=== PATIENT | female | born 1985 | race African-American/Black ===

== ENCOUNTER 2020-04-28 14:11 | Emergency (ER) | payer MEDICAID ==
[~2020-04-28] VITALS: Ht 157.5 cm; Wt 95.3 kg
[~2020-04-28 14:11] MED LIST: PRON INH
[2020-04-28 14:16] VITALS: BP 131/81
--- NOTE | 2020-04-28 14:19 | NUR ---
PT WHEELCHAIR ASSISTED TO BED 11
[2020-04-28] MEDS ORDERED: KETOROLAC 60 MG/2 ML VIAL IM ONE (14:25)
--- NOTE | 2020-04-28 14:30 | NUR ---
PT C/O LACERATION ON RT GREAT TOE WITH PAIN 8/10 S/P APPROX 75LB MIRROR FELL ON FOOT. NO ACTIVE BLEEDING NOTICED AT THIS TIME. PT DENIES ANY FEVER, CP, SOB, OR COUGH AT THIS TIME; PT IS NOT ABLE TO WALK DUE TO THE PAIN. VSS; PATIENT POSITIONED FOR COMFORT; HOB ELEVATED; BEDRAILS UP X1; BED DOWN. ER MD MADE AWARE OF PT STATUS.
--- NOTE | 2020-04-28 14:39 | NUR ---
XRAY IS AT BEDSIDE.
[2020-04-28] MEDS ORDERED: LIDOCAINE MPF 1% 10 MG/ML VIAL INJ ONE (15:05)
[2020-04-28] MEDS ORDERED: LORazepam 2 MG/ML VIAL IM ONE (16:00)
[2020-04-28 16:55] VITALS: BP 116/80
--- NOTE | 2020-04-28 16:55 | NUR ---
Patient discharged with v/s stable. Written and verbal after care instructions given and explained. Patient alert, oriented and verbalized understanding of instructions. Patient wheel chair assisted to car. All questions addressed prior to discharge. ID band removed. Patient advised to follow up with PMD. Rx of Naprosyn and Bacitracin ointment given. Patient educated on indication of medication including possible reaction and side effects. Opportunity to ask questions provided and answered.
== END 2020-04-28 16:55 | disposition home or self-care (01) ==
LOC: MED 14:11
DX: S90.32XA Contusion of left foot, initial encounter (principal); S91.312A Laceration without foreign body, left foot, initial encounter; F17.210 Nicotine dependence, cigarettes, uncomplicated; J45.909 Unspecified asthma, uncomplicated; Z98.890 Other specified postprocedural states; Z91.018 Allergy to other foods; Z79.899 Other long term (current) drug therapy; W04.XXXA Fall while being carried or supported by other persons, initial encounter; Y93.89 Activity, other specified; Y92.89 Other specified places as the place of occurrence of the external cause; Y99.8 Other external cause status
CPT/HCPCS: 73630; 96372; 99284; J1885; J2001; J2060; Q0092

== ENCOUNTER 2020-05-05 18:38 | Emergency (ER) | payer MEDICAID ==
[~2020-05-05] VITALS: Ht 157.5 cm; Wt 95.3 kg
[2020-05-05 18:42] VITALS: BP 118/90
--- NOTE | 2020-05-05 18:48 | NUR ---
AMBULATE TO BED 5 WITH STEADY GAIT.
--- NOTE | 2020-05-05 18:50 | NUR ---
1 WEEK AGO PT DROPPED LARGE OBJECT ON RIGHT BIG TOE AND SPLIT TOE NAIL. TOE IS GIVING HER PAIN, NEEDS TO GET CLEARANCE TO GO BACK TO WORK . NO ROM OF RT BIG TOE , NO OPEN WOUND NOR ACTIVE BLEEDING , ABLE TO WALK WITH STEADY GAIT. PMH: ASTHMA
--- NOTE | 2020-05-05 19:07 | NUR ---
GAVE REPORT TO ROMANA CHAVEZ ,PT COMFORTABLE IN BED ,STABLE V/S, SIDE RAILS UP X1 AND LOCK.
--- NOTE | 2020-05-05 19:08 | NUR ---
REPORT RECEIVED FROM ROMANA VÁZQUEZ FOR CONTINUATION OF CARE.
--- NOTE | 2020-05-05 19:19 | NUR ---
Dr. Frank examining patient.
[2020-05-05] MEDS ORDERED: ALBUTEROL 0.083% 2.5 MG/3 ML NEBU INH ONE (19:35)
--- NOTE | 2020-05-05 19:48 | NUR ---
RT AT BEDSIDE FOR TX.
[2020-05-05 20:08] VITALS: BP 118/90
== END 2020-05-05 20:08 | disposition home or self-care (01) ==
LOC: MED 18:38
DX: S91.201A Unspecified open wound of right great toe with damage to nail, initial encounter (principal); J45.909 Unspecified asthma, uncomplicated; Z79.899 Other long term (current) drug therapy; Z91.018 Allergy to other foods; W22.8XXA Striking against or struck by other objects, initial encounter; Y93.89 Activity, other specified; Y92.89 Other specified places as the place of occurrence of the external cause; Y99.8 Other external cause status
CPT/HCPCS: 94640; 99283; J7613

== ENCOUNTER 2020-08-04 18:40 | Emergency (ER) | payer MEDICAID ==
[~2020-08-04] VITALS: Ht 157.5 cm; Wt 93.0 kg
--- NOTE | 2020-08-04 18:49 | NUR ---
PATIENT AMBULATED TO ER BED 3.
[2020-08-04 18:51] VITALS: BP 106/45
--- NOTE | 2020-08-04 19:15 | NUR ---
34 YO F BI SELF FOR C/C OF WHITE VAGINAL DISCHARGE AND PAINFUL INTERCORSE X1 WEEK. PT DENIES , HEMATURIA, ITCHINESS, OR BLOODY DISCHARGE. MED HX: ASTHMA ALLERGIES TO PEANUTS NO RX
--- NOTE | 2020-08-04 19:30 | NUR ---
PT UNABLE TO PROVIDE UA AT THIS TIME
--- NOTE | 2020-08-04 19:35 | NUR ---
PT PROVIDED WITH TWO GLASSES OF H2O TO PROVIDE UA
--- NOTE | 2020-08-04 19:45 | NUR ---
ASSISTED DR. DALAL IN VAGINAL EAM
--- NOTE | 2020-08-04 19:54 | NUR ---
WET CHRIST COLLECTED AND SENT TO LAB
--- NOTE | 2020-08-04 20:25 | NUR ---
PT ENCOURAGED TO GIVE UA
[2020-08-04 20:39] VITALS: BP 106/45
--- NOTE | 2020-08-04 20:39 | NUR ---
Patient discharged with v/s stable. Written and verbal after care instructions given and explained. Patient verbalized understanding. Ambulatory with steady gait. All questions addressed prior to discharge. Advised to follow up with PMD.
[2020-08-10 06:07] LABS: CHLAMYDIA TRACHOMATIS AMP DNA Negative (Negative)
== END 2020-08-04 20:39 | disposition home or self-care (01) ==
LOC: MED 18:40
DX: N89.8 Other specified noninflammatory disorders of vagina (principal); J45.909 Unspecified asthma, uncomplicated; Z79.899 Other long term (current) drug therapy; Z98.890 Other specified postprocedural states; Z91.010 Allergy to peanuts; Z01.419 Encounter for gynecological examination (general) (routine) without abnormal findings; Z00.00 Encounter for general adult medical examination without abnormal findings
CPT/HCPCS: 36415; 81002; 81025; 87070; 87205; 87210; 87491; 99283; 99284

== ENCOUNTER 2020-11-07 18:06 | Emergency (ER) | payer MEDICAID ==
--- NOTE | 2020-11-07 18:17 | NUR ---
PT CALLED AT TRIAGE, NO RESPONSE. PATIENT LEFT WITHOUT BEING SEEN BY DR. MCDERMOTT. NO FURTHER CARE PROVIDED FOR PATIENT.
--- NOTE | 2020-11-07 18:22 | NUR ---
CALLED FOR SECOND TIME, NO RESPONSE.
--- NOTE | 2020-11-07 18:27 | NUR ---
CALLED FOR THE THIRD TIME, NO RESPONSE.
== END 2020-11-07 18:27 | disposition left against medical advice (07) ==
LOC: MED 18:06
DX: Z53.21 Procedure and treatment not carried out due to patient leaving prior to being seen by health care provider (principal)

== ENCOUNTER 2021-02-05 01:23 | Emergency (ER) | payer MEDICAID ==
[~2021-02-05] VITALS: Ht 157.5 cm; Wt 88.5 kg
[2021-02-05 01:28] VITALS: BP 147/90
--- NOTE | 2021-02-05 01:28 | NUR ---
TO BED AMBULATORY
[2021-02-05] MEDS ORDERED: ALBUTEROL SULFATE/IPRATROPIU 3 ML SOL IH ONE ×2 (01:40)
[2021-02-05] MEDS ORDERED: predniSONE 20 MG TAB PO ONE (01:40)
--- NOTE | 2021-02-05 01:44 | NUR ---
35 Y/O F BIB SELF FROM HOME, C/O ASTHMA ATTACK THAT STARTED 3 DAYS AGO, SOB. HAS NOT BEEN ABLE TO TAKE ALBUTEROL INHALER AT HOME SINCE SHE IS CURRENTLY OUT OF THE MEDICATION. DENIES CHEST PAIN, COUGH NON-PRODUCTIVE, DENIES FEVERS. UPON AUSCULTATION, LUNGS BILATERAL AUDIBLE WHEEZING WITH INSPIRATORY AND EXPIRATORY, NO CRACKLES. PT IS CURRENTLY ON PULSE OXIMETER MONITOR STAT 100% ON RA. LMP: 02/02/21 PMH: ASTHMA NKDA, FOOD: PEANUT
--- NOTE | 2021-02-05 01:45 | NUR ---
RT AT BEDSIDE GIVING TREATMENT
[2021-02-05] MEDS ORDERED: ALBUTEROL HFA MDI 90 MCG/ACTUATION 8 GM INH STA (01:56)
[2021-02-05] MEDS ORDERED: PRED20TA5 PO (02:00)
[2021-02-05] MEDS ORDERED: ALBU0.0912 IH (02:00)
--- NOTE | 2021-02-05 02:08 | NUR ---
REASSESSED LUNGS ANTERIOR AND POSTERIOR, ALL LUNG BASES CLAR WITH NO AUDIBLE WHEEZING DURING INSPIRATION AND EXPIRATION.
--- NOTE | 2021-02-05 02:23 | NUR ---
PT HANDED MICHAELB PER ERMHemal.
[2021-02-05 02:24] VITALS: BP 147/90
--- NOTE | 2021-02-05 02:24 | NUR ---
Patient discharged with v/s stable. Written and verbal after care instructions given and explained. Patient alert, oriented and verbalized understanding of instructions. Ambulatory with steady gait. All questions addressed prior to discharge. ID band removed. Patient advised to follow up with PMD. Rx of PREDNISONE, ALBUTEROL given. Patient educated on indication of medication including possible reaction and side effects. Opportunity to ask questions provided and answered.
== END 2021-02-05 02:21 | disposition home or self-care (01) ==
LOC: MED 01:23
DX: J45.901 Unspecified asthma with (acute) exacerbation (principal); F17.210 Nicotine dependence, cigarettes, uncomplicated; Z91.010 Allergy to peanuts; Z79.899 Other long term (current) drug therapy
CPT/HCPCS: 94640; 99283; J3535; J7512

== ENCOUNTER 2021-04-26 23:44 | Emergency (ER) | payer MEDICAID ==
[~2021-04-26] VITALS: Ht 157.5 cm; Wt 90.3 kg
[~2021-04-26 23:44] MED LIST changes: +ALBU0.0912 IH; +PRED20TA5 PO
[2021-04-26 23:57] VITALS: BP 156/110
[2021-04-27] MEDS ORDERED: ALBUTEROL SULFATE/IPRATROPIU 3 ML SOL IH ONE (00:35)
[2021-04-27 01:06] VITALS: BP 156/110
[2021-04-27] MEDS ORDERED: ALBU0.0912 INH (01:37)
== END 2021-04-27 01:45 | disposition home or self-care (01) ==
LOC: MED 23:44
DX: J45.901 Unspecified asthma with (acute) exacerbation (principal); Z79.899 Other long term (current) drug therapy; Z91.010 Allergy to peanuts
CPT/HCPCS: 94640; 99283

== ENCOUNTER 2021-07-24 00:52 | Emergency (ER) | payer MEDICAID ==
[~2021-07-24] VITALS: Ht 160 cm; Wt 90.7 kg
[~2021-07-24 00:52] MED LIST changes: +ALBU0.0912 INH
[2021-07-24 01:10] VITALS: BP 155/70
--- NOTE | 2021-07-24 01:13 | NUR ---
TO LOBBY A/W BED AMBULATORY
[2021-07-24] MEDS ORDERED: ALBUTEROL 0.083% 2.5 MG/3 ML NEBU INH ONE (02:25)
[2021-07-24] MEDS ORDERED: PRED20TA5 PO (02:38)
--- NOTE | 2021-07-24 02:51 | NUR ---
Respiratory Therapist at bedside for respiratory intervention.
--- NOTE | 2021-07-24 03:00 | NUR ---
Patient discharged with v/s stable. Written and verbal after care instructions ABOUT ADULT ASTHMA given and explained. Patient alert, oriented and verbalized understanding of instructions. Ambulatory with steady gait. All questions addressed prior to discharge. ID band removed. Patient advised to follow up with PMD. Rx of PREDNISONE given. Patient educated on indication of medication including possible reaction and side effects. Opportunity to ask questions provided and answered.
== END 2021-07-24 03:00 | disposition home or self-care (01) ==
LOC: MED 00:52
DX: J45.901 Unspecified asthma with (acute) exacerbation (principal); Z79.899 Other long term (current) drug therapy; Z91.010 Allergy to peanuts
CPT/HCPCS: 94640; 99283; J7613

== ENCOUNTER 2021-10-18 06:19 | Emergency (ER) | payer MEDICAID ==
[~2021-10-18] VITALS: Ht 157.5 cm; Wt 90.7 kg
[2021-10-18 06:20] VITALS: BP 156/105
--- NOTE | 2021-10-18 06:20 | NUR ---
to bed ambulatory
[2021-10-18] MEDS ORDERED: PROCHLORPERAZINE 10 MG/2 ML VIAL IM ONE (06:45)
--- NOTE | 2021-10-18 06:45 | NUR ---
patient swabbed and sent to lab
[2021-10-18] MEDS ORDERED: PROCHLORPERAZINE 5 MG TAB PO ONE (06:50)
--- NOTE | 2021-10-18 06:58 | NUR ---
patient to CT via w/c
--- NOTE | 2021-10-18 07:25 | NUR ---
Pt report given to Kristen GENTILE. Transfer of care at this time.
[2021-10-18] MEDS ORDERED: IBUPROFEN 400 MG TAB PO ONE (07:55)
[2021-10-18] MEDS ORDERED: HYDROcodone/APAP 5/325 MG 1 TAB TAB PO ONE (07:55)
[2021-10-18] MEDS ORDERED: FLONAS NS (07:59)
[2021-10-18] MEDS ORDERED: NAPR-54 PO (07:59)
[2021-10-18] MEDS ORDERED: PSEU120T31 PO (07:59)
[2021-10-18] MEDS ORDERED: ACET-8386 PO (07:59)
[2021-10-18 08:23] VITALS: BP 156/105
--- NOTE | 2021-10-18 08:24 | NUR ---
Patient discharged with v/s stable. Written and verbal after care instructions given and explained. Patient alert, oriented and verbalized understanding of instructions. Ambulatory with steady gait. All questions addressed prior to discharge. ID band removed. Patient advised to follow up with PMD. Rx of HYDROCODONE/ACETAMINOPHEN, FLUTICASONE PROPIANATE, NAROXEN, PSEUDOEPHEDRINE GCI given. Opportunity to ask questions provided and answered.
== END 2021-10-18 08:23 | disposition home or self-care (01) ==
LOC: MED 06:19
DX: J32.9 Chronic sinusitis, unspecified (principal); Z20.822 Contact with and (suspected) exposure to COVID-19; R51.9 Headache, unspecified; R11.0 Nausea; R43.8 Other disturbances of smell and taste; J45.909 Unspecified asthma, uncomplicated; F17.200 Nicotine dependence, unspecified, uncomplicated; Z98.890 Other specified postprocedural states; Z79.899 Other long term (current) drug therapy; Z91.010 Allergy to peanuts
CPT/HCPCS: 70450; 87426; 99284; Q0164; U0003

== ENCOUNTER 2021-11-27 10:03 | Emergency (ER) | payer MEDICAID ==
[~2021-11-27] VITALS: Ht 160 cm; Wt 90.7 kg
[~2021-11-27 10:03] MED LIST changes: +ACET-8386 PO; +FLONAS NS; +NAPR-54 PO; +PSEU120T31 PO
[2021-11-27] MEDS ORDERED: ALBUTEROL 0.083% 2.5 MG/3 ML NEBU INH STA (10:13)
[2021-11-27 10:14] VITALS: BP 130/99
[2021-11-27] MEDS ORDERED: IPRATROPIUM 0.02% 0.5 MG/2.5 ML NEBU INH ONE (10:15)
[2021-11-27] MEDS ORDERED: predniSONE 20 MG TAB PO ONE (10:15)
[2021-11-27] MEDS ORDERED: NACL 0.9% 1,000 ML IV ONE (10:15)
[2021-11-27] MEDS ORDERED: MAG SULF 2000 MG/WATER PREMIX 50 ML IV ONE (10:15)
[2021-11-27] MEDS ORDERED: ALBUTEROL 0.083% 2.5 MG/3 ML NEBU INH ONE (10:16)
--- NOTE | 2021-11-27 10:20 | NUR ---
C/O SOB X 30 MINS AGO. PMH: ASTHMA
[2021-11-27] MEDS ORDERED: ALBU0.0912 IH (11:20)
[2021-11-27] MEDS ORDERED: PRED50TA2 PO (11:20)
[2021-11-27 11:30] VITALS: BP 128/83
--- NOTE | 2021-11-27 11:30 | NUR ---
Patient discharged with v/s stable. Written and verbal after care instructions given and explained. Patient alert, oriented and verbalized understanding of instructions. Ambulatory with steady gait. All questions addressed prior to discharge. ID band removed. Patient advised to follow up with PMD. Rx of PREDNISONE, ALBUTEROL SULFATE given. Patient educated on indication of medication including possible reaction and side effects. Opportunity to ask questions provided and answered.
--- NOTE | 2021-11-28 11:38 | NUR ---
LATE ENTRY- MAGNESIUM IV DISCONTINUED AT 1130.
== END 2021-11-27 11:30 | disposition home or self-care (01) ==
LOC: MED 10:03
DX: J45.901 Unspecified asthma with (acute) exacerbation (principal); Z91.010 Allergy to peanuts; Z79.899 Other long term (current) drug therapy
CPT/HCPCS: 94640; 96365; 99284; J3475; J7030; J7512; J7613; J7644

== ENCOUNTER 2021-12-13 07:26 | Emergency (ER) | payer MEDICAID ==
[~2021-12-13] VITALS: Ht 160 cm; Wt 93.0 kg
[~2021-12-13 07:26] MED LIST changes: +PRED50TA2 PO
[2021-12-13 07:34] VITALS: BP 150/80
--- NOTE | 2021-12-13 07:39 | NUR ---
PATIENT AMBULATED TO BED 5.
[2021-12-13] MEDS ORDERED: ALBUTEROL HFA MDI 90 MCG/ACTUATION 8 GM INH ONE (07:40)
[2021-12-13] MEDS ORDERED: predniSONE 20 MG TAB PO ONE (07:40)
--- NOTE | 2021-12-13 07:51 | NUR ---
RT AT PATIENT BEDSIDE PROVIDING ALBUTEROL TX
--- NOTE | 2021-12-13 07:52 | NUR ---
MDI THERAPY VIA SPACER AND RESPIRATORY DRUG GIVEN ORDERED
--- NOTE | 2021-12-13 08:25 | NUR ---
36/F PRESENTS TO ED WITH C/O SOB, COUGH AND WHEEZING X2 DAYS. PATIENT REPORTS HX OF ASTHMA AND STATES THIS FEELS LIKE HER ASTHMA, PATIENT STATES SHE HAS BEEN USING HER PRESCRIBED INHALER BUT HAS NOT FOUND RELIEF. PATIENT DENIES HEADACHE, FEVER, BODY ACHES, VOMITING, DIARRHEA OR RECENT SICK CONTACTS.
[2021-12-13] MEDS ORDERED: ALBU0.0912 INH (08:37)
[2021-12-13] MEDS ORDERED: PRED20TA5 PO (08:37)
--- NOTE | 2021-12-13 08:52 | NUR ---
Patient discharged with v/s stable. Written and verbal after care instructions ABOUT ASTHMA given and explained. Patient alert, oriented and verbalized understanding of instructions. Ambulatory with steady gait. All questions addressed prior to discharge. ID band removed. Patient advised to follow up with PMD. Rx of ALBUTEROL AND PREDNISONE given.
--- NOTE | 2021-12-13 08:58 | NUR ---
The patient's care was reviewed and supervised by Evelyn Alvares RN.
== END 2021-12-13 08:52 | disposition home or self-care (01) ==
LOC: MED 07:26
DX: J45.901 Unspecified asthma with (acute) exacerbation (principal); F17.210 Nicotine dependence, cigarettes, uncomplicated; Z79.899 Other long term (current) drug therapy; Z91.010 Allergy to peanuts
CPT/HCPCS: 94664; 99283; J7512

== ENCOUNTER 2022-03-29 17:05 | Emergency (ER) | payer MEDICAID ==
[~2022-03-29] VITALS: Ht 160 cm; Wt 100.7 kg
[2022-03-29 17:09] VITALS: BP 131/114
[2022-03-29] MEDS ORDERED: predniSONE 20 MG TAB PO ONE (17:10)
[2022-03-29] MEDS ORDERED: ALBUTEROL 0.083% 2.5 MG/3 ML NEBU INH ONE (17:10)
[2022-03-29] MEDS ORDERED: ALBUTEROL SULFATE/IPRATROPIU 3 ML SOL IH ONE (17:10)
--- NOTE | 2022-03-29 17:19 | NUR ---
Mariama dumont in ED - 03/29/22 at 1723 by [email or web address] RT BEDSIDE PROVIDING BREATHING TX
--- NOTE | 2022-03-29 17:23 | NUR ---
DR. PLATA BEDSIDE EVALUATING PT
[2022-03-29] MEDS ORDERED: PRED20TA5 PO (17:29)
[2022-03-29] MEDS ORDERED: ALBU0.0912 INH (17:29)
--- NOTE | 2022-03-29 17:32 | NUR ---
36Y FEMALE BIB SELF WITH C/O DIFFICULTY BREATHING AND COUGH X 2 DAYS. DENIES ANY PAIN. PT SATING 97% ON RA AND WHEEXING HEARD IN BILATERAL BASES. PT IS A&OX4 AND AMBULATORY. NO AUDIBLE WHEEZING HEARD. DRY COUGH NOTED THAT IS NON-PRODUCTIVE. PMH: ASTHMA ALLERGIES: PEANUTS
--- NOTE | 2022-03-29 17:36 | NUR ---
RT BEDSIDE PROVIDING BREATHING TX
--- NOTE | 2022-03-29 18:05 | NUR ---
Patient discharged with v/s stable. Written and verbal after care instructions given and explained. Patient alert, oriented and verbalized understanding of instructions. Ambulatory with steady gait. All questions addressed prior to discharge. ID band removed. Patient advised to follow up with PMD. Rx of PREDNISONE AND ALBUTEROL given. Patient educated on indication of medication including possible reaction and side effects. Opportunity to ask questions provided and answered.
== END 2022-03-29 18:05 | disposition home or self-care (01) ==
LOC: MED 17:05
DX: J45.901 Unspecified asthma with (acute) exacerbation (principal); F17.200 Nicotine dependence, unspecified, uncomplicated; Z79.899 Other long term (current) drug therapy; Z91.010 Allergy to peanuts; Z98.890 Other specified postprocedural states
CPT/HCPCS: 99283; J7512; J7613; 94640

== ENCOUNTER 2022-05-13 21:29 | Emergency (ER) | payer MEDICAID ==
[~2022-05-13] VITALS: Ht 162.6 cm; Wt 90.7 kg
[2022-05-13 21:30] VITALS: BP 148/91
--- NOTE | 2022-05-13 21:30 | NUR ---
TO BED AMBULATORY
--- NOTE | 2022-05-13 21:47 | NUR ---
Dr. Heart examining patient.
[2022-05-13] MEDS ORDERED: ALBUTEROL 0.083% 2.5 MG/3 ML NEBU INH ONE (21:50)
[2022-05-13] MEDS ORDERED: predniSONE 20 MG TAB PO ONE (21:50)
--- NOTE | 2022-05-13 21:56 | NUR ---
XRAY AT BEDSIDE
--- NOTE | 2022-05-13 21:59 | NUR ---
Respiratory Therapist at bedside for respiratory intervention.
--- NOTE | 2022-05-13 22:05 | NUR ---
Dr. Ruano examining patient.
[2022-05-13] MEDS ORDERED: ALBUTEROL SULFATE/IPRATROPIU 3 ML SOL IH ONE ×2 (22:09→22:10)
[2022-05-13] MEDS ORDERED: PRED20TA5 PO (22:34)
[2022-05-13] MEDS ORDERED: ALBU-118 IH (22:34)
[2022-05-13] MEDS ORDERED: LOTRC TP (22:51)
[2022-05-13] MEDS ORDERED: MICO2POW TP (22:51)
== END 2022-05-13 22:55 | disposition home or self-care (01) ==
LOC: MED 21:29
DX: J45.901 Unspecified asthma with (acute) exacerbation (principal); L30.4 Erythema intertrigo; F17.210 Nicotine dependence, cigarettes, uncomplicated; Z79.899 Other long term (current) drug therapy; Z91.010 Allergy to peanuts
CPT/HCPCS: 71045; 94640; 99291; J7512; J7613; Q0092

== ENCOUNTER 2022-07-09 20:58 | Emergency (ER) | payer BC, MEDICAID ==
[~2022-07-09 20:58] MED LIST changes: +ALBU-118 IH; +LOTRC TP; +MICO2POW TP
--- NOTE | 2022-07-09 21:37 | NUR ---
CALLED FOR PATIENT- NO ANSWER AT THIS TIME
--- NOTE | 2022-07-09 22:07 | NUR ---
CALLED, NO ANSWER. PT LWBS
== END 2022-07-09 21:37 | disposition left against medical advice (07) ==
LOC: MED 20:58
DX: M25.579 Pain in unspecified ankle and joints of unspecified foot (principal); Z53.21 Procedure and treatment not carried out due to patient leaving prior to being seen by health care provider

== ENCOUNTER 2022-07-16 17:47 | Emergency (ER) | payer BC ==
[~2022-07-16] VITALS: Ht 157.5 cm; Wt 105.2 kg
[2022-07-16 17:48] VITALS: BP 137/81
[2022-07-16] MEDS ORDERED: predniSONE 20 MG TAB PO ONE (18:00)
[2022-07-16] MEDS ORDERED: ALBUTEROL SULFATE/IPRATROPIU 3 ML SOL IH ONE (18:00)
[2022-07-16] MEDS ORDERED: ALBUTEROL 0.083% 2.5 MG/3 ML NEBU INH ONE (18:15)
[2022-07-16] MEDS ORDERED: ALBU0.0912 IH (18:56)
[2022-07-16] MEDS ORDERED: PRED20TA5 PO (18:56)
[2022-07-16] MEDS ORDERED: predniSONE 20 MG TAB ONE (19:44)
[2022-07-16 20:45] VITALS: BP 137/81
== END 2022-07-16 20:45 | disposition home or self-care (01) ==
LOC: MED 17:47
DX: S80.11XA Contusion of right lower leg, initial encounter (principal); J45.901 Unspecified asthma with (acute) exacerbation; F17.210 Nicotine dependence, cigarettes, uncomplicated; Z79.899 Other long term (current) drug therapy; Z91.010 Allergy to peanuts; X58.XXXA Exposure to other specified factors, initial encounter; Y93.89 Activity, other specified; Y92.89 Other specified places as the place of occurrence of the external cause; Y99.8 Other external cause status
CPT/HCPCS: 73590; 94640; 99285; J7512; J7613

== ENCOUNTER 2022-08-17 19:26 | Emergency (ER) | payer BC ==
[~2022-08-17] VITALS: Ht 160 cm; Wt 104.3 kg
[2022-08-17 19:36] VITALS: BP 132/90
--- NOTE | 2022-08-17 19:45 | NUR ---
Patient waiting in lobby for return to work note.
--- NOTE | 2022-08-17 19:48 | NUR ---
pt to chair b
--- NOTE | 2022-08-17 19:51 | NUR ---
Patient being evaluated by physician
== END 2022-08-17 19:59 | disposition home or self-care (01) ==
LOC: MED 19:26
DX: M79.605 Pain in left leg (principal); J45.909 Unspecified asthma, uncomplicated; Z02.89 Encounter for other administrative examinations; Z88.0 Allergy status to penicillin; Z79.899 Other long term (current) drug therapy
CPT/HCPCS: 99281

== ENCOUNTER 2022-08-28 00:15 | Emergency (ER) | payer BC ==
[~2022-08-28] VITALS: Ht 160 cm; Wt 99.8 kg
[2022-08-28 00:22] VITALS: BP 162/103
--- NOTE | 2022-08-28 00:25 | NUR ---
to bed ambulatory
--- NOTE | 2022-08-28 00:40 | NUR ---
36/F BIB SELF C/C DIFFICULTY BREATHING X8PM TODAY S/P WALKING A LOT AT WORK. PER PATIENT SHE STARTED FEELING SOME TIGHNESS AND WHEEZING IN HER BREATHING AFTER SHE GOT OFF WORK. PATIENT REPORTS NOT HAVING AN INHALER AT THIS TIME. +COUGH +CIG SMOKING. PATIENT DENIES PAIN/CP AT THIS TIME. PATIENT AAOX4 AND AMBULATORY. PLACED ON MORTICIAN INVESTIGATOR. 02 SAT 96%. NO ACCESSORY MUSCLE USE OR NASAL FLARING NOTED. PMHX ASTHMA NKA
--- NOTE | 2022-08-28 00:47 | NUR ---
ERMD ASSESSING PATIENT
[2022-08-28] MEDS ORDERED: DEXAMETHASONE 10 MG/ML VIAL ONE (00:49)
[2022-08-28] MEDS ORDERED: ALBUTEROL SULFATE/IPRATROPIU 3 ML SOL IH ONE (00:50)
[2022-08-28] MEDS ORDERED: DEXAMETHASONE 10 MG/ML VIAL IM ONE (00:50)
--- NOTE | 2022-08-28 00:52 | NUR ---
RT AT BEDSIDE
[2022-08-28] MEDS ORDERED: ALBU0.0912 IH (01:24)
[2022-08-28] MEDS ORDERED: PRON INH (01:24)
[2022-08-28 01:28] VITALS: BP 158/98
== END 2022-08-28 01:28 | disposition home or self-care (01) ==
LOC: MED 00:15
DX: J45.901 Unspecified asthma with (acute) exacerbation (principal); F17.200 Nicotine dependence, unspecified, uncomplicated; Z79.899 Other long term (current) drug therapy; Z91.010 Allergy to peanuts
CPT/HCPCS: 94640; 96372; 99283; J1100

== ENCOUNTER 2022-09-27 00:28 | Emergency (ER) | payer BC ==
[~2022-09-27] VITALS: Ht 157.5 cm; Wt 95.3 kg
[2022-09-27 00:51] VITALS: BP 152/106
--- NOTE | 2022-09-27 00:58 | NUR ---
PT TAKEN TO BED 7
--- NOTE | 2022-09-27 00:59 | NUR ---
PT ON BEDSIDE MONITOR SP02 99%RA
--- NOTE | 2022-09-27 01:10 | NUR ---
36YR OLD FEMALE BIB SELF C/O SOB COUGH. PT HAS HX OF ASTHMA. NON PRODUCTIVE COUGH X1 DAY. RESP EVEN AND UNLABORED. SP02 99% RA. HOB ELEVATED. SKIN WARM AND DRY. PT PLACED ON BEDSIDE SLIP COVER SEAMSTRESS. BED AT LOWEST POSITION SIDE RAILS UPX1 NKDA ASTHMA
[2022-09-27] MEDS ORDERED: predniSONE 20 MG TAB PO ONE (01:40)
[2022-09-27] MEDS ORDERED: ALBUTEROL SULFATE/IPRATROPIU 3 ML SOL IH ONE (01:40)
--- NOTE | 2022-09-27 01:47 | NUR ---
Respiratory Therapist at bedside for respiratory intervention.
--- NOTE | 2022-09-27 01:54 | NUR ---
X-Ray at bedside.
[2022-09-27] MEDS ORDERED: PRED20TA5 PO (02:12)
[2022-09-27] MEDS ORDERED: ALBU0.0912 IH (02:12)
[2022-09-27 02:24] VITALS: BP 152/106
--- NOTE | 2022-09-27 02:24 | NUR ---
Patient discharged with v/s stable. Written and verbal after care instructions given and explained. Patient alert, oriented and verbalized understanding of instructions. Ambulatory with steady gait. All questions addressed prior to discharge. ID band removed. Patient advised to follow up with PMD. Rx of PROVENTIL DELTASONE given. Patient educated on indication of medication including possible reaction and side effects. Opportunity to ask questions provided and answered.
--- NOTE | 2022-09-27 02:24 | NUR ---
The patient's care was reviewed and supervised by Juana Gonzalez RN.
== END 2022-09-27 02:24 | disposition home or self-care (01) ==
LOC: MED 00:28
DX: J45.901 Unspecified asthma with (acute) exacerbation (principal); Z71.6 Tobacco abuse counseling; F17.210 Nicotine dependence, cigarettes, uncomplicated; Z79.899 Other long term (current) drug therapy; Z79.891 Long term (current) use of opiate analgesic; Z79.1 Long term (current) use of non-steroidal anti-inflammatories (NSAID); Z91.010 Allergy to peanuts
CPT/HCPCS: 71045; 94640; 99283; J7512; Q0092

== ENCOUNTER 2022-12-13 17:04 | Emergency (ER) | payer BC ==
[~2022-12-13] VITALS: Ht 160 cm; Wt 108.0 kg
[~2022-12-13 17:04] MED LIST changes: -ACET-8386 PO; +ACET-8905 PO
[2022-12-13 17:12] VITALS: BP 134/84
[2022-12-13] MEDS ORDERED: ALBUTEROL SULFATE/IPRATROPIU 3 ML SOL IH ONE (17:20)
[2022-12-13] MEDS ORDERED: PRON INH (18:29)
[2022-12-13] MEDS ORDERED: PRED20TA5 PO (18:29)
[2022-12-13] MEDS ORDERED: ALBU0.0912 INH (18:29)
[2022-12-13] MEDS ORDERED: AZIT250T4 PO (18:29)
[2022-12-13 18:58] VITALS: BP 134/84
--- NOTE | 2022-12-13 18:58 | NUR ---
left without dx paperwork
--- NOTE | 2022-12-13 18:58 | NUR ---
Note undone in EDM - 12/13/22 at 1902 by [facility] Patient discharged with v/s stable. Written and verbal after care instructions given and explained. Patient alert, oriented and verbalized understanding of instructions. Ambulatory with steady gait. All questions addressed prior to discharge. ID band removed. Patient advised to follow up with PMD. Rx of albuterol, azithromycin, prednisone, albuterol sulfate (sent) given. Patient educated on indication of medication including possible reaction and side effects. Opportunity to ask questions provided and answered.
== END 2022-12-13 18:58 | disposition home or self-care (01) ==
LOC: MED 17:04
DX: J45.901 Unspecified asthma with (acute) exacerbation (principal); Z91.018 Allergy to other foods
CPT/HCPCS: 94640; 99283

== ENCOUNTER 2023-08-28 18:09 | Emergency (ER) | payer BC ==
[~2023-08-28] VITALS: Ht 165.1 cm; Wt 81.6 kg
[~2023-08-28 18:09] MED LIST changes: +AZIT250T4 PO
[2023-08-28 18:40] VITALS: BP 139/91; PULSE 79; RESP 20; TEMP 97; O2SAT 98
[2023-08-28 20:19] VITALS: BP 139/91; PULSE 79; RESP 20; TEMP 97; O2SAT 98
== END 2023-08-28 20:19 | disposition left against medical advice (07) ==
LOC: MED 18:09
DX: R06.02 Shortness of breath (principal); Z53.21 Procedure and treatment not carried out due to patient leaving prior to being seen by health care provider
CPT/HCPCS: 99281

== ENCOUNTER 2023-08-30 21:04 | Emergency (ER) | payer BC ==
[~2023-08-30] VITALS: Ht 157.5 cm; Wt 104.3 kg
[2023-08-30 21:19] VITALS: BP 133/101; PULSE 87; RESP 18; TEMP 97.8; O2SAT 100
[2023-08-30] MEDS ORDERED: predniSONE 20 MG TAB PO ONE (21:30)
[2023-08-30] MEDS ORDERED: ALBUTEROL SULFATE/IPRATROPIU 3 ML SOL IH ONE (21:30)
[2023-08-30] MEDS ORDERED: ALBUTEROL 0.083% 2.5 MG/3 ML NEBU INH ONE (21:30)
[2023-08-30 21:35] VITALS: PULSE 99; RESP 18; O2SAT 100
[2023-08-30] MEDS ORDERED: KETOROLAC 60 MG/2 ML VIAL IM ONE (21:35)
[2023-08-30] MEDS ORDERED: IBUP-2213 PO (21:46)
[2023-08-30] MEDS ORDERED: PRED20TA5 PO (21:46)
[2023-08-30] MEDS ORDERED: ALBU0.0912 INH (21:46)
[2023-08-30 23:05] VITALS: BP 141/88; PULSE 99; RESP 18; TEMP 97.8; O2SAT 100
== END 2023-08-30 23:05 | disposition home or self-care (01) ==
LOC: MED 21:04
DX: J45.901 Unspecified asthma with (acute) exacerbation (principal); R51.9 Headache, unspecified; Z79.899 Other long term (current) drug therapy; Z91.010 Allergy to peanuts
CPT/HCPCS: 94640; 96372; 99283; J1885; J7512; J7613

== ENCOUNTER 2023-09-27 11:57 | Emergency (ER) | payer BC ==
[~2023-09-27] VITALS: Ht 157.5 cm; Wt 90.7 kg
[~2023-09-27 11:57] MED LIST changes: +IBUP-2213 PO
[2023-09-27 11:58] VITALS: BP 135/94; PULSE 94; RESP 19; TEMP 97; O2SAT 99
[2023-09-27] MEDS ORDERED: ALBUTEROL 0.083% 2.5 MG/3 ML NEBU INH ONE (12:20)
[2023-09-27] MEDS ORDERED: predniSONE 20 MG TAB PO ONE (12:20)
[2023-09-27] MEDS ORDERED: ALBUTEROL SULFATE/IPRATROPIU 3 ML SOL IH ONE (12:20)
[2023-09-27] MEDS ORDERED: ALBU0.0912 INH (12:46)
[2023-09-27] MEDS ORDERED: PRED20TA5 PO (12:46)
[2023-09-27 13:24] VITALS: O2SAT 99
[2023-09-27 13:30] VITALS: BP 135/94; PULSE 94; RESP 19; TEMP 97; O2SAT 99
== END 2023-09-27 13:05 | disposition home or self-care (01) ==
LOC: MED 11:57
DX: J45.909 Unspecified asthma, uncomplicated (principal); Z91.010 Allergy to peanuts; Z79.899 Other long term (current) drug therapy
CPT/HCPCS: 94640; 99283; J7512; J7613

== ENCOUNTER 2023-12-23 08:15 | Emergency (ER) | payer BC ==
[~2023-12-23] VITALS: Ht 157.5 cm; Wt 95.3 kg
[2023-12-23 08:28] VITALS: BP 139/103; PULSE 96; RESP 19; TEMP 96.7; O2SAT 99
[2023-12-23] MEDS ORDERED: predniSONE 20 MG TAB PO ONE (08:45)
[2023-12-23] MEDS: ALBUTEROL SULFATE/IPRATROPIU 3 ML SOL IH ONE (09:10)
[2023-12-23 09:12] VITALS: PULSE 70; RESP 16; O2SAT 98
[2023-12-23 09:59] LABS: FLU A ANTIGEN negative (NEGATIVE); FLU B ANTIGEN negative (NEGATIVE)
[2023-12-23 10:08] VITALS: O2SAT 98
== END 2023-12-23 09:51 | disposition home or self-care (01) ==
LOC: MED 08:15
DX: J45.901 Unspecified asthma with (acute) exacerbation (principal); Z20.822 Contact with and (suspected) exposure to COVID-19; F17.200 Nicotine dependence, unspecified, uncomplicated; Z79.899 Other long term (current) drug therapy; Z91.010 Allergy to peanuts
CPT/HCPCS: 71045; 94640; 99284

== ENCOUNTER 2024-02-03 22:34 | Emergency (ER) | payer BC ==
[~2024-02-03] VITALS: Ht 152.4 cm; Wt 109.8 kg
[2024-02-03 23:09] VITALS: BP 142/92; PULSE 85; RESP 25; TEMP 97.8; O2SAT 100
[2024-02-03] MEDS ORDERED: IPRATROPIUM 0.02% 0.5 MG/2.5 ML NEBU INH ONE ×2 (23:15→23:18)
[2024-02-03] MEDS ORDERED: ALBUTEROL 0.083% 2.5 MG/3 ML NEBU INH ONE ×2 (23:15→23:18)
[2024-02-03] MEDS ORDERED: ALBUTEROL SULFATE/IPRATROPIU 3 ML SOL IH ONE (23:20)
[2024-02-03] MEDS: ALBUTEROL 0.083% 2.5 MG/3 ML NEBU INH ONE (23:23)
[2024-02-03] MEDS: IPRATROPIUM 0.02% 0.5 MG/2.5 ML NEBU INH ONE (23:24)
[2024-02-03 23:25] VITALS: PULSE 85; RESP 20; O2SAT 95
[2024-02-03] MEDS: predniSONE 20 MG TAB PO ONE (23:31)
[2024-02-04] MEDS ORDERED: PRED20TA5 PO (00:45)
== END 2024-02-04 01:05 | disposition home or self-care (01) ==
LOC: MED 22:34
DX: J45.901 Unspecified asthma with (acute) exacerbation (principal); Z91.010 Allergy to peanuts; Z79.899 Other long term (current) drug therapy
CPT/HCPCS: 94640; 99283; J7512; J7613; J7644

== ENCOUNTER 2024-02-12 11:55 | Emergency (ER) | payer BC ==
[~2024-02-12] VITALS: Ht 157.5 cm; Wt 108.9 kg
[2024-02-12 12:06] VITALS: BP 150/106; PULSE 98; RESP 22; TEMP 97.5; O2SAT 96
[2024-02-12] MEDS ORDERED: ALBUTEROL SULFATE/IPRATROPIU 3 ML SOL IH ONE (12:20)
[2024-02-12] MEDS: methylPREDNISolone SS 125 MG/2 ML VIAL IM ONE (12:33)
[2024-02-12] MEDS: ALBUTEROL SULFATE/IPRATROPIU 3 ML SOL IH ONE (12:35)
[2024-02-12 12:37] VITALS: PULSE 77; RESP 20; O2SAT 99
[2024-02-12] MEDS ORDERED: PRED20TA5 PO (13:31)
[2024-02-12] MEDS ORDERED: ALBU0.0912 INH (13:31)
[2024-02-12] MEDS ORDERED: BENZ200C4 PO (13:32)
[2024-02-12 13:55] VITALS: BP 145/97; PULSE 82; RESP 20; O2SAT 100
== END 2024-02-12 13:55 | disposition home or self-care (01) ==
LOC: MED 11:55
DX: J45.901 Unspecified asthma with (acute) exacerbation (principal); Z91.010 Allergy to peanuts; Z79.899 Other long term (current) drug therapy
CPT/HCPCS: 94640; 96372; 99283; J2930

== ENCOUNTER 2024-05-20 17:34 | Emergency (ER) | payer BC ==
[~2024-05-20] VITALS: Ht 154.9 cm; Wt 107.7 kg
[~2024-05-20 17:34] MED LIST changes: +BENZ200C4 PO; +NAPR-337 PO; -NAPR-54 PO
[2024-05-20 17:42] VITALS: BP 135/79; PULSE 118; RESP 24; TEMP 98.9; O2SAT 97
[2024-05-20] MEDS: predniSONE 20 MG TAB PO ONE (18:35)
[2024-05-20] MEDS: ALBUTEROL SULFATE/IPRATROPIU 3 ML SOL IH ONE ×2 (18:39→19:19)
[2024-05-20 18:40] VITALS: PULSE 115; RESP 20; O2SAT 97
[2024-05-20 19:19] VITALS: PULSE 120; RESP 20; O2SAT 97
[2024-05-20 19:31] LABS: FLU A ANTIGEN negative (NEGATIVE); FLU B ANTIGEN NEGATIVE (NEGATIVE)
[2024-05-20] MEDS: KETOROLAC 30 MG/ML VIAL IM ONE (20:00)
[2024-05-20] MEDS ORDERED: ALBU0.0912 IH (20:04)
[2024-05-20] MEDS ORDERED: PRED20TA5 PO (20:04)
== END 2024-05-20 20:12 | disposition home or self-care (01) ==
LOC: MED 17:34
DX: J45.901 Unspecified asthma with (acute) exacerbation (principal); Z20.822 Contact with and (suspected) exposure to COVID-19; Z98.890 Other specified postprocedural states; Z79.1 Long term (current) use of non-steroidal anti-inflammatories (NSAID); Z79.899 Other long term (current) drug therapy; Z91.010 Allergy to peanuts
CPT/HCPCS: 87426; 87804; 94640; 96372; 99284; J1885; J7512

== ENCOUNTER 2024-07-01 21:43 | Emergency (ER) | payer BC ==
[~2024-07-01] VITALS: Ht 157.5 cm; Wt 108.0 kg
[2024-07-01 22:22] VITALS: BP 156/106; PULSE 114; RESP 24; TEMP 98; O2SAT 100
[2024-07-01 22:55] VITALS: O2SAT 100
[2024-07-01 23:05] LABS: FLU A ANTIGEN negative (NEGATIVE); FLU B ANTIGEN NEGATIVE (NEGATIVE)
[2024-07-01] MEDS: ALBUTEROL 0.083% 2.5 MG/3 ML NEBU INH ONE (23:34)
[2024-07-01] MEDS ORDERED: ALBUTEROL 0.083% 2.5 MG/3 ML NEBU INH ONE (23:40)
[2024-07-01] MEDS: DEXAMETHASONE 10 MG/ML VIAL IM ONE (23:43)
[2024-07-01 23:48] VITALS: RESP 26; O2SAT 100
[2024-07-01 23:49] VITALS: RESP 20; O2SAT 100
[2024-07-01] MEDS ORDERED: AMOX500C25 PO (23:54)
[2024-07-01] MEDS ORDERED: PRED20TA5 PO (23:54)
[2024-07-02 00:10] VITALS: BP 156/106; PULSE 114; RESP 20; TEMP 98; O2SAT 100
== END 2024-07-02 00:10 | disposition home or self-care (01) ==
LOC: MED 21:43
DX: J45.901 Unspecified asthma with (acute) exacerbation (principal); J02.9 Acute pharyngitis, unspecified; Z20.822 Contact with and (suspected) exposure to COVID-19; Z79.899 Other long term (current) drug therapy; Z91.010 Allergy to peanuts
CPT/HCPCS: 87081; 87426; 87804; 94640; 96372; 99283; J1100; J7613

== ENCOUNTER 2024-07-14 11:42 | Emergency (ER) | payer BC ==
[~2024-07-14] VITALS: Ht 152.4 cm; Wt 107.0 kg
[~2024-07-14 11:42] MED LIST changes: +AMOX500C25 PO
[2024-07-14 11:51] VITALS: BP 123/87; PULSE 75; RESP 18; TEMP 97.2; O2SAT 100
[2024-07-14] MEDS: FAMOTIDINE 20 MG TAB PO ONE (12:53)
[2024-07-14] MEDS: ONDANSETRON 4 MG ODT PO ONE (12:54)
[2024-07-14] MEDS: DICYCLOMINE HCL LIQUID 20 MG, ALUMINUM HYD/MAG/SIMETHICONE 30 ML, LIDOCAINE VISCOUS 2% ... PO ONE (12:55)
[2024-07-14 13:06] VITALS: PULSE 67; RESP 16; O2SAT 100
[2024-07-14] MEDS: ALBUTEROL 0.083% 2.5 MG/3 ML NEBU INH ONE ×2 (13:06→13:15)
[2024-07-14 13:25] VITALS: PULSE 78; RESP 18; O2SAT 98
[2024-07-14] MEDS: predniSONE 20 MG TAB PO ONE (13:28)
[2024-07-14] MEDS ORDERED: PRED20TA5 PO (13:38)
[2024-07-14] MEDS ORDERED: ALBU0.0912 IH (13:38)
[2024-07-14] MEDS ORDERED: IMO2 PO (13:38)
[2024-07-14] MEDS ORDERED: ONDA-188 PO (13:38)
[2024-07-14] MEDS ORDERED: MAG-27 PO (13:38)
[2024-07-14 14:10] LABS: APPEARANCE,URINE CLEAR (CLEAR); BILIRUBIN,URINE NEGATIVE (NEGATIVE); BLOOD, URINE 1+ (NEGATIVE); COLOR,URINE YELLOW (YELLOW); LEUKOCYTE ESTERASE ,URINE TRACE (NEGATIVE); NITRITE, URINE NEGATIVE (NEGATIVE); PROTEIN,URINE NEGATIVE (NEGATIVE); UGLUCOSE NEGATIVE (NEGATIVE); UROBILINOGEN,URINE 0.2 EU/dL (0.2 - 1)
[2024-07-14 14:27] LABS: BACTERIA,URINE FEW /HPF (None Seen); SQUAMOUS EPITHELIAL CELL,UR 4-10 (MOD) /LPF (0-3 (FEW)); WBC,URINE 0-5 /HPF (0-5)
== END 2024-07-14 13:45 | disposition home or self-care (01) ==
LOC: MED 11:42
DX: R11.2 Nausea with vomiting, unspecified (principal); R19.7 Diarrhea, unspecified; R10.13 Epigastric pain; J45.909 Unspecified asthma, uncomplicated; Z79.899 Other long term (current) drug therapy; Z91.010 Allergy to peanuts
CPT/HCPCS: 81001; 81025; 94640; 99284; J7512; J7613; Q0162